=== PATIENT | female | born 1990 | race Asian ===

== ENCOUNTER 2017-04-04 12:56 | Emergency (ER) | payer SELFPAY ==
[~2017-04-04] VITALS: Ht 160 cm; Wt 62.1 kg
[2017-04-04 13:25] VITALS: Ht 160 cm; Wt 62.1 kg
[2017-04-04 15:50] VITALS: BP 122/69
== END 2017-04-04 18:17 | disposition home or self-care (01) ==
LOC: ED 12:56
DX: J11.1 Influenza due to unidentified influenza virus with other respiratory manifestations (principal)
CPT/HCPCS: 87804; J1885

== ENCOUNTER 2017-12-07 20:41 | Emergency (ER) | payer MEDICAID ==
[~2017-12-07] VITALS: Ht 162.6 cm; Wt 68.2 kg
[2017-12-07 21:25] VITALS: Ht 162.6 cm; Wt 68.2 kg
[2017-12-07 22:04] VITALS: BP 106/68
== END 2017-12-07 22:04 | disposition home or self-care (01) ==
LOC: ED 20:41
DX: J20.9 Acute bronchitis, unspecified (principal)